=== PATIENT | male | born 1975 | race Caucasian/White ===

== ENCOUNTER 2023-10-17 12:40 | Emergency (ER) | payer OTHER ==
[2023-10-17 12:59] VITALS: BP 132/91; O2SAT 99
--- NOTE | 2023-10-17 13:06 | ED Physician Documentation ---
PD HPI OPHTHO - Stated complaint Stated Complaint: EYE INJURY - Chief complaint Chief Complaint: Heent - History obtained from History obtained from: Patient - History of Present Illness Timing - onset: Today Timing - details: Abrupt onset, Still present Location: Right Quality / character: Aching Associated symptoms: Redness. No: Loss of vision Contributing factors: Blunt trauma (he was struck in right eye with tile at work. He denies residual FB in eye. The edge of it did strike eyeball but also some pain of lower lid. NO bleeding.), Work related. No: Penetrating trauma Similar symptoms before: Has not had sx before Review of Systems Eyes: reports: Irritation (with watering of eye). denies: Loss of vision, Decreased vision PD PAST MEDICAL HISTORY - Past Medical History Past Medical History: No - Past Surgical History Past Surgical History: Yes Ortho: Arthroscopic surgery - Present Medications Home Medications: Ambulatory Orders Medication Instructions Recorded Confirmed Erythromycin Base [Erythromycin 1 applic OP QID #3.5 gm 10/17/23 Ophthalmic Ointment] Ketorolac Tromethamine 2 drops RIGHTEYE QID 4 Days #5 ml 10/17/23 - Allergies Allergies/Adverse Reactions: Allergies Allergy/AdvReac Type Severity Reaction Status Date / Time No Known Drug Allergies Allergy Verified 10/17/23 12:55 - Social History Does the pt smoke?: No Smoking Status: Never smoker Does the pt drink ETOH?: No Does the pt have substance abuse?: No - Immunizations Immunizations: TDAP >10years/unknown PD ED PE NORMAL - Vitals Vital signs reviewed: Yes - General General: Alert and oriented X 3, Well developed/nourished, Other (appears uncomfortable with eyelid closed to reduce discomfort. Feels better with proparacaine drops. ) - HEENT HEENT: PERRL, EOMI PD ED PE EXPANDED - Eyes Eyes: PERRL, EOMI, Eyelid erythema (mildly of lower lateral lid. Hyperemia noted of the lower aspect right eye. ), Injected conj/sclera, Corneal abrasion (mid front of eye, superficial. ), Anterior chambers clear, Normal fundi. No: Eyelid injury Results - Vitals Vitals: Vital Signs - 24 hr 10/17/23 12:53 Temperature 36 C L Heart Rate 69 Respiratory 16 Rate Blood Pressure 132/91 H O2 Saturation 99 Oxygen O2 Source Room air PD Medical Decision Making - ED course Complexity details: considered differential (eye injury with discomfort, improved with proparacaine. Has an abrasion. will give NSAIDs and oitnment for discomfort. Off work today and possibly tomorrow. ), d/w patient Departure - Departure Disposition: 01 Home, Self Care Clinical Impression: Corneal abrasion, Work related injury Condition: Stable Record reviewed to determine appropriate education?: Yes Instructions: ED Eye Injury Corneal Abrasion Prescriptions: Erythromycin Base [Erythromycin Ophthalmic Ointment] 1 applic OP QID #3.5 gm Ketorolac Tromethamine 2 drops RIGHTEYE QID 4 Days #5 ml Comments: You have a surface abrasion on the right eye. This should heal fairly readily i n the next day or 2. The pain of it should decrease well even through the rest of today. Commonly will use some anti-inflammatory drops of ketorolac 2 drops 4 times a day over the next several days as this is fully healing. You can coat the eye with some ointment as well to help lubricate the surface so there is less irritation from the eyelid movement. You can use erythromycin ointment for this or any lubricating eyedrops. Tylenol or ibuprofen every 6-8 hours if needed for pains. Rest the rest of today off work to avoid wind and irritation and dryness. Likely will be able to resume work tomorrow though a second day off may be needed if it still irritated. Recheck if not fully improved in the next couple of days or if other symptoms develop. I sent a prescription to [facility] pharmacy. Forms: PCP List, Activity restrictions Discharge Date/Time: 10/17/23 14:16
[2023-10-17] MEDS ORDERED: PROPARACAINE 0.5% OPHTH DROPS 15 ML RIGHTEYE STA (13:07)
[2023-10-17] MEDS ORDERED: IBUPROFEN 600 MG TABLET PO STA (13:44)
[2023-10-17] MEDS ORDERED: ERYTHROMYCIN OPHTH OINT 1 GM TUBE RIGHTEYE STA (13:44)
== END 2023-10-17 14:16 | disposition home or self-care (01) ==
LOC: ED 12:40
DX: S05.01XA Injury of conjunctiva and corneal abrasion without foreign body, right eye, initial encounter (principal); W22.8XXA Striking against or struck by other objects, initial encounter; Y99.0 Civilian activity done for income or pay
CPT/HCPCS: 1040M; 99282; 99283; A9270; J3490

== ENCOUNTER 2023-10-23 09:02 | Emergency (ER) | payer OTHER ==
[2023-10-23 09:54] VITALS: BP 128/77; O2SAT 97
--- NOTE | 2023-10-23 10:56 | ED Physician Documentation ---
History of Present Illness - Stated complaint Stated Complaint: RT EYE PX,WATERY - Chief complaint Chief Complaint: Heent - Additonal information Additional information: Patient 48-year-old male presenting to the emergency department with right eye pain. Seen here approximately 1 week ago after a blunt trauma injury to the right eye. Reports that initially he was at work and got struck in the eye by a floor tile. Was discharged from the facility with ophthalmologic antibiotic ointment as well as a topical ketorolac drop. Was feeling better with improvement in all symptoms however today woke up with increasing pain, redness and irritation to the right eye. Reports the vision is slightly fuzzy. Also endorses for photophobia. Denies for any previous ophthalmologic issues or contact lens use. Review of Systems Eyes: denies: Loss of vision Ears: reports: Ear pain Nose: denies: Rhinorrhea / runny nose Throat: denies: Dental pain / toothache Cardiac: denies: Chest pain / pressure Respiratory: denies: Dyspnea GI: denies: Abdominal Pain : denies: Dysuria Skin: denies: Rash Musculoskeletal: denies: Neck pain PD PAST MEDICAL HISTORY - Past Medical History Past Medical History: No - Past Surgical History Past Surgical History: Yes Ortho: Arthroscopic surgery - Present Medications Home Medications: Ambulatory Orders Medication Instructions Recorded Confirmed Erythromycin Base [Erythromycin 1 applic OP QID #3.5 gm 10/17/23 10/23/23 Ophthalmic Ointment] Ketorolac Tromethamine 2 drops RIGHTEYE QID 4 Days #5 ml 10/17/23 10/23/23 - Allergies Allergies/Adverse Reactions: Allergies Allergy/AdvReac Type Severity Reaction Status Date / Time No Known Drug Allergies Allergy Verified 10/23/23 09:51 - Social History Does the pt smoke?: No Smoking Status: Never smoker Does the pt drink ETOH?: No Does the pt have substance abuse?: No - Immunizations Immunizations: TDAP >10years/unknown - POLST Patient has POLST: No PD ED PE NORMAL - General General: Alert and oriented X 3 - HEENT HEENT: Other (Right eye with diffuse conjunctival injections. Red light reflex is appreciated on ophthalmoscope. Retina is poorly visualized. Fluorescein stain negative for corneal abrasions or ulcerations. Issa-Pen measurement 27.5. Ocular ultrasonography does not demonstrate any vitreous hemorrhage, retina) - Cardiac Cardiac: No: RRR - Respiratory Respiratory: No: No respiratory distress - Abdomen Abdomen: No: Normal bowel sounds - Male Male : No: Deferred - Rectal Rectal: No: Deferred - Back Back: No: No CVA TTP Results - Vitals Vitals: Vital Signs - 24 hr 10/23/23 09:48 Temperature 36.4 C L Heart Rate 65 Respiratory 16 Rate Blood Pressure 128/77 O2 Saturation 97 Oxygen O2 Source Room air PD Medical Decision Making - ED course Complexity details: reviewed results, re-evaluated patient, d/w quality consultant ED course: Patient 48-year-old male presenting to the emergency department with right eye pain. This is in the setting of initial blunt trauma to the eye approximately 1 week ago which had improved until this morning. Arrives with obvious conjunctival injections to the right eye. Extraocular motion is intact. Red light reflex is appreciated on exam although the retina is poorly visualized. Fluorescein exam negative for ulcerations, abrasions or indications of globe rupture. No foreign body is identified. Ultrasonography of the eye demonstrates a effectively normal exam with no enlargement of the optic nerve, normal lens placement, no vitreous hemorrhage, vitreous detachment or retinal d etachment. Intraocular pressure 27.5 (average of 3 measurements). Patient does demonstrate pupillary reaction that is equal howeverHe does note some significant photophobia to the affected eye as well as some very mild photophobia to the contralateral eye. Overall his presentation is concerning for traumatic iritis. He did receive a blunt injury to the eye approximately 1 week ago with some initial improvement in his symptoms that have since recurred and worsened. Slit-lamp examination is attempted however I do not clearly identify any cell or flare in the anterior chamber. Nevertheless consulted with Dr. Steve, ophthalmology who graciously agrees to see the patient this afternoon. He was discharged from our facility with clear instructions to follow-up with ophthalmology later today. Departure - Departure Disposition: 01 Home, Self Care Clinical Impression: Eye injury Qualifiers: Encounter type: initial encounter Laterality: right Qualified Code(s): S05.91XA - Unspecified injury of right eye and orbit, initial encounter Comments: Please follow-up with Dr. Maverick Steve, ophthalmology. You have a 2:00 appointment [address] [address] Forms: PCP List Discharge Date/Time: 10/23/23 11:00
== END 2023-10-23 11:00 | disposition home or self-care (01) ==
LOC: ED 09:02
DX: S05.91XA Unspecified injury of right eye and orbit, initial encounter (principal); X58.XXXA Exposure to other specified factors, initial encounter
CPT/HCPCS: 99282; 99283